=== PATIENT | female | born 2005 | race Caucasian/White ===

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

== ENCOUNTER 2024-09-16 01:10 | Outpatient (CLI) | payer MEDICAID, SELFPAY ==
[2024-09-16 01:27] VITALS: BMI 41.7
[2024-09-16 01:48] VITALS: RESP 16; TEMP 36.4
[2024-09-16 01:49] VITALS: BP 121/65; PULSE 93; PULSE 97; O2SAT 97
[2024-09-16 02:04] LABS: Color, Urine Yellow (Yellow); Glucose, Dipstick Normal (Normal); Ketone-Dipstick Negative (Negative); Leukocyte Esterase-Dipstick 500 /ul (Negative); Nitrite-Dipstick Negative (Negative); Occult Blood-Urine 250 /ul (Negative); Protein-Dipstick 30 mg/dl (Negative); Urine Bilirubin Dipstick Negative (Negative); Urine Clarity Cloudy (Clear); Urine Urobilinogen 4 mg/dl (Normal)
--- NOTE | 2024-09-21 08:22 | OB.TRI.NOTE ---
HPI - General General Date of Service: 09/16/24 HPI Narrative KAY SINCLAIR, is a 19 F who presents with right sided abdominal pain. 29w3d PFSH PFSH Home Medications ?Medication ?Instructions ?Recorded ?Last Taken ?Type aspirin 81 mg chewable tablet 1 tab PO DAILY 09/16/24 09/15/24 20:00 History famotidine 20 mg tablet (Pepcid) 20 mg PO BID 09/16/24 09/15/24 20:00 History vit no.95-ferrous 1 tab PO DAILY see doc 09/16/24 09/15/24 08:00 History fumarate 28 mg-folic acid 800 mcg tablet () Allergy/AdvReac Type Severity Reaction Status Date / Time No Known Allergies Allergy Verified 09/16/24 01:51 Social History Smoking Status: Never smoker NST FHR Rate Baby A Baseline: 130 Variability:: Moderate Accelerations:: 15 x 15 Decelerations:: None NST Reactive:: Yes Uterine Activity:: Irritability Assessment & Plan (1) False labor: PLAN: Plan 1) Will send urine culture 2) D/C home
== END 2024-09-16 02:30 | disposition home or self-care (01) ==
LOC: WPOUT 01:23 → WP 01:23
PROVIDERS: Visit Provider Advanced Practice Midwife
DX: O47.03 False labor before 37 completed weeks of gestation, third trimester (principal); Z79.82 Long term (current) use of aspirin; Z3A.29 29 weeks gestation of pregnancy
CPT/HCPCS: 59025; 59050; 81002; 87086; 87088; 99221; G0378

== ENCOUNTER 2024-12-01 01:20 | Inpatient (IN) | payer MEDICAID, SELFPAY ==
[2024-12-01] VITALS (351 sets, daily range): BP systolic 87–182; BP diastolic 50–107; PULSE 70–153; RESP 14–18; TEMP 36–37.2; O2SAT 82–100; BMI 47.5
[2024-12-01 01:42] LABS: Absolute Lymphocyte Count 1.98 X10^3/uL (0.83-4.51); Absolute Neutrophil Count 11.7 X10^3/uL (2.0-7.7); Basophil# 0.06 X10^3/uL; Basophil% 0.4 % (0-1); Eosinophil# 0.06 X10^3/uL; Eosinophils% 0.4 % (0-5); Hematocrit 31.8 % (37-47); Hemoglobin 10.4 g/dL (12.0-15.0); Lymphocyte # 1.98 X10^3/ul (0.83-4.51); Mean Corp Hgb Conc 32.7 g/dL (32-36); Mean Corpuscular Volume 85.7 fL (81-99); Mean Platelet Vol. 10.8 fl (6.2-12.0); Monocyte# 1.25 X10^3/uL; Monocyte% 8.2 % (0-10); NRBC Flagged by Analyzer 0 % (0-5); Neutrophil # 11.72 X10^3/uL (2.7-7.7); Neutrophil % 77.3 % (47-70); Platelet Count 339 K/mm3 (150-450); RBC Distribution Width CV 14.1 % (11.6-14.6); RBC Distribution Width SD 43.9 fl (35.1-43.9); Red Blood Count 3.71 M/mm3 (4.2-5.4); White Blood Count 15.2 K/mm3 (4.4-11.0)
--- NOTE | 2024-12-01 01:45 | PCM.HP.OB ---
HPI - General General Date of Admission: 12/01/24 Date of Service: 12/01/24 Chief Complaint: contractions HPI Narrative KAY SINCLAIR, is a 19 F who presents with increasing contractions. Elevated BP in severe range x 3. No FINN. No LOF No bleeding. Maternal Data Information Final ELSA: 11/29/24 Gestational age: 40+2 PFSH PFSH Home Medications ?Medication ?Instructions ?Recorded ?Last Taken ?Type aspirin 81 mg chewable tablet 1 tab PO DAILY 09/16/24 09/15/24 20:00 History famotidine 20 mg tablet (Pepcid) 20 mg PO BID 09/16/24 09/15/24 20:00 History vit no.95-ferrous 1 tab PO DAILY see doc 09/16/24 09/15/24 08:00 History fumarate 28 mg-folic acid 800 mcg tablet () Allergy/AdvReac Type Severity Reaction Status Date / Time No Known Allergies Allergy Verified 12/01/24 01:03 Social History Smoking Status: Never smoker History 1 Elective abortions Hx Para 0 Spontaneous abortions Hx # Term Pregnancies Ectopic pregnancies Hx # Pregnancies Multiple births # of living children NST FHR Rate Baby A Baseline: 130 Variability:: Moderate Accelerations:: 15 x 15 Decelerations:: None NST Reactive:: Yes ROS Constitutional Constitutional: Denies fatigue, fever(s) or malaise Eyes Eyes: Denies change in vision ENT HEENT: Denies dizziness or headache(s) Cardiovascular Cardiovascular: Denies chest pain, dyspnea or lightheadedness Respiratory/Chest Respiratory/Chest: Denies cough or dyspnea Gastrointestinal Gastrointestinal: Denies change in bowel habits Genitourinary Genitourinary: Denies burning urination or genital lesions Integumentary Integumentary: Denies rash Neurologic Neurologic: Denies confusion, dizziness, headache(s), numbness or weakness Vital Signs Vital Signs Vital Signs: 12/01/24 00:59 12/01/24 00:59 12/01/24 00:59 Temperature Temperature Source Temporal Pulse Rate 86 Respiratory Rate Blood Pressure BP Systolic BP Diastolic Pulse Ox 98 12/01/24 00:59 12/01/24 00:59 12/01/24 01:01 Temperature 98.0 F Temperature Source Pulse Rate Respiratory Rate 14 Blood Pressure 176/98 H BP Systolic 176 BP Diastolic 98 Pulse Ox 12/01/24 01:01 12/01/24 01:04 12/01/24 01:04 Temperature Temperature Source Pulse Rate 82 92 Respiratory Rate Blood Pressure BP Systolic BP Diastolic Pulse Ox 98 12/01/24 01:09 12/01/24 01:09 12/01/24 01:14 Temperature Temperature Source Pulse Rate 81 70 Respiratory Rate Blood Pressure BP Systolic BP Diastolic Pulse Ox 98 12/01/24 01:14 12/01/24 01:17 12/01/24 01:17 Temperature Temperature Source Pulse Rate 83 Respiratory Rate Blood Pressure 166/97 H BP Systolic 166 BP Diastolic 97 Pulse Ox 99 12/01/24 01:19 12/01/24 01:19 12/01/24 01:24 Temperature Temperature Source Pulse Rate 82 85 Respiratory Rate Blood Pressure BP Systolic BP Diastolic Pulse Ox 98 12/01/24 01:24 12/01/24 01:29 12/01/24 01:29 Temperature Temperature Source Pulse Rate 73 Respiratory Rate Blood Pressure BP Systolic BP Diastolic Pulse Ox 97 99 12/01/24 01:34 12/01/24 01:34 12/01/24 01:35 Temperature Temperature Source Pulse Rate 86 77 Respiratory Rate Blood Pressure 176/107 H BP Systolic 176 BP Diastolic 107 Pulse Ox 12/01/24 01:35 12/01/24 01:40 12/01/24 01:40 Temperature Temperature Source Pulse Rate 81 Respiratory Rate Blood Pressure BP Systolic BP Diastolic Pulse Ox 99 98 Weight Weight: 125.645 kg Body Mass Index (BMI) 47.5 Physical Exam Const alert and no apparent distress General Appearance: cooperative HEENT normocephalic Resp normal respiratory effort Cardio regular rate GI soft to palpation GI Narrative: gravid, nontender, appropriate for gestational age Extremity no calf tenderness General Extremity: edema Skin no wounds Rashes: No rashes noted Psych activity/motor behavior normal Labs Labs Labs: Blood Type Pending Antibody Screen Pending Hct 31.8 % (37-47) L Hgb 10.4 g/dL (12.0-15.0) L Syphilis Total Ab Pending Assessment & Plan (1) 40 weeks gestation of : (2) Polyhydramnios affecting : (3) Severe pre-eclampsia affecting childbirth: PLAN: Started HTN protocol Magnesium therapy
[2024-12-01] MEDS: Magnesium Sulfate 4gm/100mL 4 GM/100 ML IV.SOLN. IV (01:50)
[2024-12-01 02:05] LABS: Protein, Urine (Random) 21.8 mg/dL (0.0-12.0); Protein:Creat Ratio 267 mg/g CRE (0-200)
[2024-12-01] MEDS: Magnesium Sulfate 4gm/100mL 2 GM/50 ML IV.SOLN. IV (02:10)
[2024-12-01 02:12] LABS: Syphilis Antibodies Nonreactive (Nonreactive)
[2024-12-01] MEDS: Magnesium Sulfate 20 GM/500 ML BAG IV ×3 (02:25→22:49)
[2024-12-01 02:29] LABS: AST(SGOT) 14 U/L (<=31); Alanine Aminotransfer ALT/SGPT < 5 U/L (<=34); Creatinine, Serum 0.57 mg/dL (0.70-1.20); EST Glomerular Filtration Rate 133 (>60); Estimated Creatinine Clearance 204.76 ml/min (50-250)
[2024-12-01 02:30] LABS: Uric Acid 4.9 mg/dL (2.6-6.0)
[2024-12-01] MEDS: NIFEdipine 10 MG Capsule PO (03:16)
[2024-12-01] MEDS: Oxytocin 15 Units/NS 250ml 15 UNITS/250 ML IV.SOLN 2 UNITS IV (04:35)
[2024-12-01] MEDS: NIFEdipine 30 MG Tablet PO (04:35)
[2024-12-01] MEDS: NIFEdipine 10 MG Capsule 20 MG PO ×2 (04:55→05:23)
[2024-12-01] MEDS: Lactated Ringers 1,000 ML 15 ML IV ×2 (08:10→16:17)
[2024-12-01] MEDS: LACTATED RINGERS 500 ML 999 ML IV ×2 (10:57→11:30)
[2024-12-01] MEDS: fentaNYL-bupivacaine (epidural) 100 ML BAG EPIDURAL ×3 (11:54→20:15)
--- NOTE | 2024-12-01 23:28 | PLAC_PTH ---
PATIENT: KAY SINCLAIR LOC: [facility] U#:[id number] AGE/SX: 19/F ROOM: WP014 RE12/01/[address]: Dr. Kateryna Kaur MD : 2005 BED: 1 DIS: 12/04/2024 SPEC #: [id number] RECD: 12/02/24 01:49 STATUS: ANGELA DAVIDMavis #: [id number] IMANI: 12/01/24 23:[address]: Kateryna Kaur DEPT: SURGICAL PATHOLOGY RECD BY: Kalyani Alvarado ENTERED: 12/02/24 06:52 SP TYPE: PLACENTA OTHR DR: No Primary Care Phys Tissues: A - Placenta, NOS Procedures: Surgery Specimen Level V HEADER OPERATION: Delivery PRE-OP DIAGNOSIS: Severe preeclampsia TISSUE SUBMITTED: A- Placenta MICROSCOPIC DIAGNOSIS A. Placenta: * Mature third trimester placenta (486.5 grams, formalin fixed weight) with acute inflammation of the chorionic plate * Three vessel umbilical cord with acute funisitis * membranes with acute chorioamnionitis * MICROSCOPIC DESCRIPTION Slides are reviewed. GROSS DESCRIPTION A. Received in formalin in a container labeled with the patient's name, date of , and with no further designation is an 18.0 x 17.5 x 2.2 cm cote and discoid placenta with a trimmed weight of 486.5 g. The white-garcia eccentrically located umbilical cord exhibits 3 vessels and is 18.3 cm in length by 1 cm in diameter. Received in the same container is a separate, additional segment of tri-vessel umbilical cord measuring 22.0 cm in length by 1.3 cm in diameter. The pink-kaur membranes are partially stripped with a 60% marginal insertion and 40% circummarginate insertion. The surface is pink-pritchett with 3 white and rubbery foci of possible subchorionic fibrin ranging from 1.0 to 1.5 cm in greatest dimension (comprising less than 5% of the surface). The maternal surface exhibits red-pritchett cotyledons that appear complete with a moderate amount of easily removed blood clot material. Serial sections reveal red, spongy, and congested surfaces. Punching Machine Operator sections:A1. Umbilical cord and membrane rollA2. Full-thickness section with possible subchorionic fibrinA3. Full-thickness section [facility] 12-02-2024 CPT:03671
--- NOTE | 2024-12-01 23:28 | OB.VAGDELI_ITS ---
Maternal Data Information Final ELSA: 11/29/24 Gestational age: 40 2/7 Vaginal Delivery Maternal Presentation Maternal Presentation: Medically Indicated Induction Type of Induction: Pitocin and Amniotomy Medical Reason for Induction: Preeclampsia, eclampsia Vaginal Delivery Information Procedure Performed: Spontaneous Vaginal Delivery Surgeon/Practitioner: Kateryna Kaur Date of Procedure: 12/01/24 Pre-Procedure Diagnosis: labor Post-Procedure Diagnosis: same Type of anesthesia: Epidural Estimated Blood Loss: 300 Time of Delivery: 23:06 Findings Description of procedure: A vigorous female was delivered ASHA over a first-degree perineal laceration. A loose nuchal cord ?1 was easily reduced. The remainder the infant was delivered with maternal pushing and gentle traction only in less than 15 seconds. The Pitocin infusion was initiated for active management of the third stage. The cord was clamped and cut after cord pulsations ceased. The was attended to by the waiting nursing staff. The placenta was delivered spontaneously and intact. The cervix and vagina were intact. The first-degree perineal and vaginal laceration were oversewn with 3-0 Vicryl repeat [id number] sutures for hemostasis. Excellent hemostasis was noted. Sponge and needle counts were correct. A vaginal sweep was completed by me. Procedure findings: vigorous female Presentation: ASHA Amniotic Membrane Rupture Type: Artificial Amniotic Fluid Description: Clear Placental Delivery Description: Spontaneous Placenta Disposition: Sent to Pathology Specimen collected: No Cord Vessel Description: 3 Vessels Cord Entanglement: Around neck x 1, loose Nuchal Cord Compression: Without compression Cord Gases: ABG and VBG Infant A Gender: Female (Ivory) (1 minute): 8 (5 minute): 9 Delayed Cord Clamping: Yes Education Associate airfield services officer: No Post Vaginal Deli Medications given after delivery: IV Pitocin Episiotomy Description: None Laceration: 1st degree (perineal and vaginal)
[2024-12-01] MEDS: Oxytocin 15 Units/NS 250ml 15 UNITS/250 ML IV.SOLN 83 UNITS IV (23:45)
[2024-12-02] VITALS (272 sets, daily range): BP systolic 116–141; BP diastolic 53–82; PULSE 75–122; RESP 15–18; TEMP 36.2–37.2; O2SAT 80–100
[2024-12-02 01:49] LABS: Pathology Specimen OB SEE PATHOLOGY REPORT
[2024-12-02] MEDS: Acetaminophen 500 MG Tablet 1000 MG PO (01:59)
[2024-12-02 07:33] LABS: Absolute Lymphocyte Count 1.44 X10^3/uL (0.83-4.51); Absolute Neutrophil Count 21.1 X10^3/uL (2.0-7.7); Basophil# 0.05 X10^3/uL; Basophil% 0.2 % (0-1); Differential Indicated SCAN CRITERIA MET; Eosinophil# 0.11 X10^3/uL; Eosinophils% 0.4 % (0-5); Hematocrit 29.7 % (37-47); Hemoglobin 9.8 g/dL (12.0-15.0); Lymphocyte # 1.44 X10^3/ul (0.83-4.51); Lymphocyte % 5.8 % (19-41); Mean Corpuscular Volume 84.9 fL (81-99); Mean Platelet Vol. 10.3 fl (6.2-12.0); Monocyte% 6.9 % (0-10); NRBC Flagged by Analyzer 0 % (0-5); Neutrophil # 21.07 X10^3/uL (2.7-7.7); Neutrophil % 85.7 % (47-70); POSITIVE DIFFERENTIAL YES; Platelet Count 326 K/mm3 (150-450); RBC Distribution Width CV 14.4 % (11.6-14.6); RBC Distribution Width SD 44.2 fl (35.1-43.9); White Blood Count 24.6 K/mm3 (4.4-11.0)
[2024-12-02 07:34] LABS: Differential Comment SCANNED
[2024-12-02] MEDS: Benzocaine/Lanolin/Aloe Vera 85 GM Spray 1 SPRAY TOPICAL (08:57)
[2024-12-02] MEDS: Magnesium Sulfate 20 GM/500 ML BAG IV ×2 (08:58→19:19)
[2024-12-02] MEDS: NIFEdipine 30 MG Tablet PO (10:20)
--- NOTE | 2024-12-02 12:27 | PCM.PROGNOTE ---
Subjective Subjective patient seen at bedside, doing well. Patient reports good pain control. lochia mild. denies FINN, visual changes or RUQ pain. Objective Data Objective Data Abd: no RUQ pain on palpation. Fundus firm. Vital Signs: Vital Signs Temp Pulse Resp BP Pulse Ox O2 Del Method 97.7 F L 100 16 122/59 H 97 Room Air 12/02/24 11:00 12/02/24 12:22 12/02/24 12:00 12/02/24 12:00 12/02/24 12:22 12/02/24 12:00 Oxygen Delivery Method Room Air Weight: 125.645 kg Body Mass Index (BMI) 47.5 Intake & Output: Intake and Output for Last 24 Hours 11/30/24 12/01/24 12/02/24 23:59 23:59 23:59 Intake Total 3669.05 / 3669.05 1650 / 1650 Output Total 3440 / 3490 2550 / 2550 Balance 229.05 / 179.05 -900 / -900 Lab / Micro Data 12/02/24 06:00 12/01/24 01:30 Labs: Laboratory Results - last 24 hr 12/02/24 06:00: WBC Cancelled 12/02/24 06:00: WBC 24.6 H, Corrected WBC Cancelled, RBC Cancelled 12/02/24 06:00: RBC 3.50 L, Hgb Cancelled 12/02/24 06:00: Hgb 9.8 L, Hct Cancelled 12/02/24 06:00: Hct 29.7 L, MCV Cancelled 12/02/24 06:00: MCV 84.9, MCH Cancelled 12/02/24 06:00: MCH 28.0, MCHC Cancelled 12/02/24 06:00: MCHC 33.0, RDW Std Deviation Cancelled 12/02/24 06:00: RDW Std Deviation 44.2 H, RDW Coeff of Raeann Cancelled 12/02/24 06:00: RDW Coeff of Raeann 14.4, Plt Count Cancelled 12/02/24 06:00: Plt Count 326, MPV Cancelled 12/02/24 06:00: MPV 10.3, Immature Gran % (Auto) Cancelled 12/02/24 06:00: Immature Gran % (Auto) 1.000 H, Neut % (Auto) Cancelled 12/02/24 06:00: Neut % (Auto) 85.7 H, Lymph % (Auto) Cancelled 12/02/24 06:00: Lymph % (Auto) 5.8 L, [place] % (Auto) Cancelled 12/02/24 06:00: [place] % (Auto) 6.9, Eos % (Auto) Cancelled 12/02/24 06:00: Eos % (Auto) 0.4, Baso % (Auto) Cancelled 12/02/24 06:00: Baso % (Auto) 0.2, Absolute Neuts (auto) Cancelled 12/02/24 06:00: Absolute Neuts (auto) 21.1 H, Absolute Lymphs (auto) Cancelled 12/02/24 06:00: Absolute Lymphs (auto) 1.44, Total Counted Cancelled, Neutrophils % (Manual) Cancelled, Band Neutrophils % Cancelled, Lymphocytes % (Manual) Cancelled, Monocytes % (Manual) Cancelled, Eosinophils % (Manual) Cancelled, Basophils % (Manual) Cancelled, Metamyelocytes % Cancelled, Myelocytes % Cancelled, Promyelocytes % Cancelled, Blast Cells % Cancelled, Plasma Cell % (Manual) Cancelled, Other Cells % Cancelled, Nucleated RBC % Cancelled 12/02/24 06:00: Nucleated RBC % 0, Nucleated RBCs/100 WBC Cancelled, Differential Comment Cancelled 12/02/24 06:00: Differential Comment SCANNED, Diff Path Review Cancelled, Hypersegmented Neuts Cancelled, Atypical Lymphocytes Cancelled, Reactive Lymphocytes Cancelled, Smudge Cells Cancelled, Toxic Granulation Cancelled, Toxic Vacuolation Cancelled, Dohle Bodies Cancelled, [place] Cancelled, Platelet Estimate Cancelled, Plt Morphology Comment Cancelled, RBC Morphology Cancelled 12/02/24 06:00: RBC Morphology Cancelled, Polychromasia Cancelled, Hypochromasia Cancelled, Basophilic Stippling Cancelled, Anisocytosis Cancelled, Microcytosis Cancelled, Macrocytosis Cancelled, Spherocytes Cancelled, Sickle Cells Cancelled, Target Cells Cancelled, Tear Drop Cells Cancelled, Ovalocytes Cancelled, Stomatocytes Cancelled, [place] Bodies Cancelled, [place] Cells Cancelled, Bite Cells Cancelled, Crenated Cell Cancelled, Acanthocytes (Spur) Cancelled, Rouleaux Cancelled, Schistocytes Cancelled Physical Exam Const alert and oriented x3 General Appearance: cooperative HEENT normocephalic Neck General: normal visual inspection GI soft to palpation and non-distended GI Narrative: Fundus firm Extremity normal to inspection and no calf tenderness Skin no rashes or lesions noted Neuro oriented x3 and CN's II-XII intact bilaterally Psych mental status grossly normal Assessment & Plan Assessment/Plan (1) Severe pre-eclampsia affecting childbirth: (2) Vaginal delivery: PLAN: Plan PPD# 1 , preeclampsia w/ severe features. continue magnesium x 24 hrs (apprx 11pm) continue procardia 30xl for BP control Routine care pain mgmt ambulation
[2024-12-03 04:19] VITALS: BP 135/74; PULSE 82; O2SAT 78
[2024-12-03 04:37] VITALS: BP 135/74; PULSE 82; RESP 16; TEMP 36.3; O2SAT 98
[2024-12-03 08:26] VITALS: BP 129/82; PULSE 72; RESP 15; TEMP 36.2
[2024-12-03] MEDS: NIFEdipine 30 MG Tablet PO (09:53)
[2024-12-03] MEDS: Acetaminophen 500 MG Tablet 1000 MG PO (12:21)
[2024-12-03 14:51] VITALS: BP 132/80; PULSE 81; RESP 18; TEMP 36.2
[2024-12-03 14:52] VITALS: BP 132/80; PULSE 81
--- NOTE | 2024-12-03 18:01 | PCM.PN.BLA ---
Progress Note pain well controlled, average lochia. Denies FINN or visual changes Physical Exam Narrative 2+ edema, 2+ DTRs, no clonus Const alert and no apparent distress Narrative: Fundus firm, below umbilicus. Assessment & Plan Assessment/Plan (1) Vaginal delivery: PLAN: PPD#2 doing well BP stable likely d/c home in am on procardia (2) Severe pre-eclampsia affecting childbirth:
[2024-12-03 19:26] VITALS: BP 128/73; PULSE 75; RESP 16; TEMP 36.8; O2SAT 80; O2SAT 99
[2024-12-04 01:20] VITALS: BP 129/79; PULSE 84
[2024-12-04 01:22] VITALS: BP 129/79; PULSE 84; RESP 14; TEMP 36.4
[2024-12-04 07:54] VITALS: BP 121/76; PULSE 74; PULSE 75; RESP 14; TEMP 36.3; O2SAT 93; O2SAT 97; O2SAT 98
[2024-12-04 07:55] VITALS: BP 121/76; PULSE 80
--- NOTE | 2024-12-04 08:46 | DS.PCM_ITS ---
Providers Date of Admission: 12/01/24 Primary Care Physician: Isis Primary Care Phys Reason For Visit: VAG Diagnosis Discharge Diagnosis (1) Vaginal delivery: Status: Acute Code(s): O80 - Encounter for full-term uncomplicated delivery (2) Severe pre-eclampsia affecting childbirth: Status: Acute Code(s): O14.14 - Severe pre-eclampsia complicating childbirth (3) Care and examination of lactating mother: Status: Acute Code(s): Z39.1 - Encounter for care and examination of lactating mother Plan PPD 3 - Severe preeclampsia Continue Procardia 30 mg XR PO daily- RX sent Reviewed preeclampsia precautions and when to contact office D/C home with follow up in office on Saturday BP monitoring at home Medications at Discharge Home Medications famotidine 20 mg tablet (Pepcid) 20 mg PO BID 09/16/24 vit no.95-ferrous fumarate 28 mg-folic acid 800 mcg tablet () 1 tab PO DAILY see doc 09/16/24 nifedipine 30 mg tablet,extended release 24 hr 30 mg PO DAILY #30 tabs 12/04/24 Hospital Course Operations None Procedures None Summary of Care Provided Minutes Spent on Discharge: 20 Hospital Course: Patient had vaginal delivery. Hospital course was uneventful. Physical Exam Narrative Patient seen at bedside. Denies pain. Ambulating and voiding without difficulty. Lochia decreased. Desires discharge home today. Denies any headache, vision changes, SOB, CP or RUQ pain. Const alert and oriented x3 General Appearance: Negative for in distress HEENT normocephalic Eyes General Eye: normal appearance of both eyes Neck General: normal visual inspection Chest Chest: symmetrical chest wall rise Resp normal respiratory effort and normal air movement Effort and Inspection: symmetric chest movement; Negative for tachypneic Auscultation: clear to auscultation bilaterally Cardio regular rate and regular rhythm Peripheral Pulses: pulses 2+ throughout GI normal to inspection, nondistended, normoactive bowel sounds Narrative: Ice to perineum OB / External & Speculum: vaginal bleeding and other Lochia decreasing Uterus Palpation: uterus fundus firm (Below U) Extremity normal to inspection, full ROM and normal capillary refill Skin no rashes or lesions noted Neuro oriented x3, CN's II-XII intact bilaterally and gait normal Psych mental status grossly normal, thought process normal and activity/motor behavior normal Weight / BMI Weight Weight: 277 lb Body Mass Index (BMI) 47.5 ABG / Lab / Microbiology Data 12/02/24 06:00 12/01/24 01:30 D/C Instructions Discharge Diet: No restrictions Discharge Activity: Return to Normal Activity, No Restrictions, May Drive, May Shower and May Take a Tub Bath (Warm water only. No bath salts, soaps, bubbles) May resume sexual activity in: 6-8 weeks Weight Bearing Status: Weight bearing as tolerated Call your doctor if you observe: Fever of 101 or Higher, Inability to urinate, Using more than 1 pad per hour, Shortness of breath, Dizziness, Chest pain, Calf discomfort and Uncontrolled pain DC O2, CPAP, BIPAP Needs Home O2 Discharge instructions: No Additional Instructions: Take blood pressures and write down. Report any readings of >160/>110 or headache, vision changes, RUQ pain Please Follow Up With: [facility] Erica WYMAN When: Saturday for BP check Meaningful Use Info Meaningful Use Meaningful Use Diagnoses (Choose all that apply): None applicable Ischemic Stroke Statin Dosing Therapy Reference: STATIN DOSE THERAPY REFERENCE: * Patients > 75 years receive moderate or high dose statin therapy. * Patients 75 years or YOUNGER should receive HIGH intensity statin dose unless contraindicated. You will be required to document reason for non-treatment if statin daily dose does not meet guidelines. HIGH DOSE STATIN THERAPY DAILY Atorvastatin > than or = to 40 mg Rosuvastatin > than or = to 20 mg Amlodipine + Atorvastatin > than or = to 2.5/40 mg Ezetimibe + Simvastatin 10/80 mg Simvastatin 80mg Discharge Plan Admission Admit Date/Time: 12/01/24 01:20 Primary Reason for Your Visit: Labor and Delivery Attending Provider: Kateryna Kaur Primary Care Provider: Care Physician,No Primary Discharge Orders/Prescriptions Prescriptions: New nifedipine 30 mg Tablet Extended Release 24hr 30 mg PO DAILY Qty: 30 1RF Continued PNV cmb#95-ferrous fumarate-FA [] 28 mg iron- 800 mcg tablet 1 tab PO DAILY famotidine [Pepcid] 20 mg tablet 20 mg PO BID Discontinued aspirin 81 mg tablet,chewable 1 tab PO DAILY Referrals / Follow Up: Denisha Shultz CNM [Med Staff - Adv Practice Prof] - Care Physician,No Primary [Primary Care Provider] - Disposition Disposition (needs filled in before D/C Order can be placed): Home, Self Care
[2024-12-04] MEDS: NIFEdipine 30 MG Tablet PO (10:30)
[2024-12-04 10:45] VITALS: RESP 16
--- NOTE | 2024-12-08 16:05 | NURSING ---
Spoke with the patient. She states she is feeling good overall. Denies any c/o headache or visual disturbances. States bleeding is minimal. Pt states she is pumping, supplementing, and offering the breast. Pt to f/u tomorrow with . Pt was happy with her care, and has no questions at this time.
== END 2024-12-04 11:05 | disposition home or self-care (01) | DRG 560 ==
LOC: WPOUT 01:26 → WP 01:26
PROVIDERS: Obstetrics & Gynecology; Admitting Provider Obstetrics & Gynecology; Referring Provider Obstetrics & Gynecology; Visit Provider Obstetrics & Gynecology
DX: O14.14 Severe pre-eclampsia complicating childbirth (principal); Z37.0 Single live birth; K21.9 Gastro-esophageal reflux disease without esophagitis; O99.62 Diseases of the digestive system complicating childbirth; O69.81X0 Labor and delivery complicated by cord around neck, without compression, not applicable or unspecified; O70.0 First degree perineal laceration during delivery; Z3A.40 40 weeks gestation of pregnancy; Z79.899 Other long term (current) drug therapy
CPT/HCPCS: 59025; 59050; 82565; 82570; 84156; 84450; 84460; 84550; 85025; 85027; 86780; 86850; 86900; 86901; 88307; 99221; G0378